=== PATIENT | female | born 1960 | race Caucasian/White ===

== ENCOUNTER → 2018-11-01 | Outpatient (CLI) | payer BC ==
--- NOTE | 2018-11-01 15:37 | BD ---
EXAMINATION TYPE: Axial Bone Density DATE OF EXAM: 11/01/2018 COMPARISON: NONE CLINICAL HISTORY: Height: 66 Weight: 176.1 FRAX RISK QUESTIONS: Alcohol (3 or more units per day): no Family History (Parent hip fracture): no Glucocorticoids (More than 3mos): no (Ex: prednisone, prednisolone, methylprednisolone, dexamethasone, and hydrocortisone). History of Fracture in Adulthood: no Secondary Osteoporosis: 1. Type 1 Diabetes: no 2. Hyperthyroidism: no 3. Menopause before 45: no 4. Malnutrition: no 5. Chronic liver disease: no Rheumatoid Arthritis: no Current Tobacco Use: no RISK FACTORS HISTORY OF: Family History of Osteoporosis: yes Active: yes Diet low in dairy products/other sources of calcium: no Postmenopausal woman: age 54 MEDICATIONS: none Additional History: EXAM MEASUREMENTS: Bone mineral densitometry was performed using the [employer] System. Bone mineral density as measured about the Lumbar spine is: ----- L1-L4(G/cm2): 1.471 T Score Values are as follows: ----- L2: 2.6 ----- L3: 2.7 ----- L4: 2.3 ----- L1-L4: 2.4 Bone mineral density : baseline Bone mineral density about the R hip (g/cm2): 1.143 Bone mineral density about the L hip (g/cm2): 1.167 T Score values are as follows: -----R Neck: 0.8 -----L Neck: 0.9 -----R Total: 0.9 -----L Total: 1.4 Bone mineral density : baseline IMPRESSION: Negative NOTE: T-SCORE=SD OF THE YOUNG ADULT MEAN.
--- NOTE | 2018-11-03 10:17 | MM ---
Reason for exam: screening (asymptomatic). Last mammogram was performed 1 year and 10 months ago. History: Patient is postmenopausal. Physical Findings: A clinical breast exam by your physician is recommended on an annual basis and results should be correlated with mammographic findings. MG 3D Screening Mammo W/Cad Bilateral CC and MLO view(s) were taken. Prior study comparison: December 30, 2016, mammogram, performed at [facility]. December 27, 2016, mammogram, performed at [facility]. The breast tissue is heterogeneously dense. This may lower the sensitivity of mammography. There is chronic nodularity in the left breast. No significant changes when compared with prior studies. ASSESSMENT: Benign, BI-RAD 2 RECOMMENDATION: Routine screening mammogram of both breasts in 1 year.
== END | disposition home or self-care (01) ==
LOC: RADMAMWWP 14:18
PROVIDERS: ATTEND Family Medicine
DX: Z12.31 Encounter for screening mammogram for malignant neoplasm of breast (principal); Z13.820 Encounter for screening for osteoporosis
CPT/HCPCS: 77063; 77067; 77080

== ENCOUNTER → 2020-12-08 | Outpatient (CLI) | payer BC ==
[2020-12-08 15:36] LABS: Basophils # (A) 0.1 k/uL (0-0.2); Basophils % (A) 1 %; Eosinophils # (A) 0.3 k/uL (0-0.7); Eosinophils % (A) 5 %; HCT 41.6 % (34.0-46.0); HGB 14.2 gm/dL (11.4-16.0); Lymphocytes # (A) 1.9 k/uL (1.0-4.8); Lymphocytes % (A) 30 %; MCH 31.5 pg (25.0-35.0); MCV 92.6 fL (80.0-100.0); Mean Platelet Volume 7.6; Monocytes # (A) 0.4 k/uL (0-1.0); Monocytes % (A) 7 %; Neutrophils # (A) 3.3 k/uL (1.3-7.7); Neutrophils % (A) 54 %; Platelet Count 227 k/uL (150-450); RDW 12.6 % (11.5-15.5); WBC 6.1 k/uL (3.8-10.6)
[2020-12-08 15:43] LABS: African American GFR (CKD) >90 (>60 ml/min/1.73 sqM); Anion Gap 6 mmol/L; Blood Urea Nitrogen 13 mg/dL (7-17); Carbon Dioxide 30 mmol/L (22-30); Chloride 105 mmol/L (98-107); Glucose 87 mg/dL (74-99); Non-African American GFR(CKD) >90 (>60 ml/min/1.73 sqM); Potassium 4.2 mmol/L (3.5-5.1); Sodium 141 mmol/L (137-145)
== END | disposition home or self-care (01) ==
LOC: LABPAT 14:32
PROVIDERS: ATTEND Obstetrics & Gynecology
DX: Z01.818 Encounter for other preprocedural examination (principal); N81.4 Uterovaginal prolapse, unspecified; R94.31 Abnormal electrocardiogram [ECG] [EKG]
CPT/HCPCS: 36415; 80051; 82565; 82947; 84520; 85025; 86850; 86900; 86901; 87086; 93005

== ENCOUNTER 2020-12-16 05:41 | Day surgery (SDC) | payer BC ==
[2020-12-10 15:45] VITALS: BMI 27.4
[~2020-12-16 05:41] MED LIST: DEXAMETHASONE SOD PHOSPHATE 4 MG/ML 1 ML VIAL IV ONE; MIDAZOLAM 2 MG/2 ML VIAL IV PRN; ONDANSETRON 4 MG/2 ML VIAL IVP ONE; SCOPOLAMINE 1.5MG/72HR PATCH TRANSDERM ONE
[2020-12-16] MEDS ORDERED: LACTATED RINGERS 1,000 ML IV ONE ×2 (06:25→09:34)
[2020-12-16] MEDS ORDERED: fentaNYL (PF) 50 MCG/ML 2 ML AMP IV PRN (07:00)
--- NOTE | 2020-12-16 07:09 | P.ANPRN ---
Procedure Note - Anesthesia - Nerve Block Performed Bilateral Erector Spinae Single Time Out Performed: Yes (640) Date of Procedure: 12/16/20 Procedure Start Time: 06:41 Procedure Stop Time: 06:51 Location of Patient: PreOp Indication: Acute Post-Operative Pain, Analgesia, Requested by Surgeon Specifically requested for management of pain by DrLeslye: Hannah Carrizales Sedation Type: Sedate with meaningful contact maintained Preparation: Sterile Prep Position: Prone Catheter: None Needle Types: Pajunk Needle Gauge: 21 Ultrasound used to visualize needle placement: Yes Ultrasound used to observe medication spread: Yes Injectate: Other (see comment) (0.25% ropivacaine 40 mL) Blood Aspirated: No Pain Paresthesia on Injection Noted: No Resistance on Injection: Normal Image Stored and Saved: Yes Events: Uneventful and Well Tolerated
[2020-12-16] MEDS ORDERED: ROCURONIUM 10 MG/ML (5 ML VIAL) IV ONE (07:21)
[2020-12-16] MEDS ORDERED: LIDOCAINE 1% INJ 10MG/ML (20 ML MDV) ONE (07:21)
[2020-12-16] MEDS ORDERED: NEOSTIGMINE 1 MG/ML 10 ML VIAL ONE (07:21)
[2020-12-16] MEDS ORDERED: fentaNYL (PF) 50 MCG/ML 2 ML AMP ONE (07:21)
[2020-12-16] MEDS ORDERED: PROPOFOL 10 MG/ML 20 ML VIAL IV ONE (07:21)
[2020-12-16] MEDS ORDERED: GLYCOPYRROLATE 0.2 MG/ML 2 ML VIAL ONE (07:21)
[2020-12-16] MEDS ORDERED: SUCCINYLCHOLINE CHLORIDE 100 MG/5 ML SYR IV ONE (07:21)
[2020-12-16] MEDS ORDERED: ROPIVACAINE 5 MG/ML 30 ML VIAL ONE (07:21)
[2020-12-16] MEDS ORDERED: BACITRACIN ZINC 500 UNIT/GM OINT 28.4 GM TUBE TOPICAL ONE (07:52)
[2020-12-16] MEDS ORDERED: VASOPRESSIN 20 UNIT/ML 1 ML VIAL IM ONE (07:52)
[2020-12-16] MEDS ORDERED: ZOLPIDEM 5 MG TAB PO PRN (08:55)
[2020-12-16] MEDS ORDERED: ONDANSETRON 4 MG/2 ML VIAL IVP PRN (08:55)
[2020-12-16] MEDS ORDERED: diphenhydrAMINE 50 MG/ML 1 ML VIAL IVP PRN (08:55)
[2020-12-16] MEDS ORDERED: KETOROLAC 15 MG/ML 1 ML VIAL IVP PRN (08:55)
[2020-12-16] MEDS ORDERED: SIMETHICONE 80 MG CHEWABLE PO PRN (08:55)
[2020-12-16] MEDS ORDERED: METOCLOPRAMIDE 5 MG/ML 2 ML VIAL IVP PRN (08:55)
--- NOTE | 2020-12-16 08:55 | P.OP ---
Date of Procedure: 12/16/20 Preoperative Diagnosis: Symptomatic uterine prolapse and cystocele Postoperative Diagnosis: Same, normal-appearing ovaries bilaterally Procedure(s) Performed: Vaginal hysterectomy, anterior colporrhaphy Anesthesia: ELOYA Surgeon: Hannah Carrizales Medical Accountant #1: Gabriela Cruz Estimated Blood Loss (ml): 50 IV fluids (ml): 500 Urine output (ml): 200 Pathology: other (Cervix and uterus) Condition: stable Disposition: PACU Operative Findings: Normal-appearing ovaries bilaterally. Description of Procedure: Patient is brought to the operating suite where a general anesthetic is admin istered without difficulty. She's placed in the dorsal lithotomy position. Antibiotics are given. The appropriate timeout is performed to assure proper patient and procedural identification. Bladder is drained for approximately 200 mL of clear yellow urine. The cervix, vagina, perineum are all prepped and draped in usual sterile fashion. Weighted speculum was placed into the vagina. The anterior lip of the cervix is grasped with a double-tooth tenaculum. The cervix is injected circumferentially with a dilute Pitressin solution. A shawnee blade scalpel is used to incise the mucosa circumferentially with a V positioning at 6:00. A sponge is used to sweep the mucosa from the underlying fascial plane. Peritoneum is entered at 6:00 and suture tied with 2-0 Vicryl, held with a hemostat. The large billed speculum is then placed. Had her is Well from the operative field to avoid bladder and/or ureteral injury. The right uterosacral cardinal ligament is identified, clamped with a H aney clamped, cut and suture ligated. The suture is held laterally with a hemostat. Please note that 0 Vicryl suture is used for the entire remaining hysterectomy portion of the procedure. Same procedure is carried out contralaterally on the left uterosacral cardinal ligament, again held with a hemostat. Uterine vasculature is identified, clamped cut and suture ligated. 2 additional pedicles are taken superior to the vessels bilaterally. The anterior peritoneum was entered at 12:00 with a Metzenbaum scissor. The uterus is then "walked out". Paulo clamps are used across the final pedicles, the cervix and uterus are sent to pathology. The pedicles are tied with 0 Vicryl suture, flashed, and retied for excellent hemostasis. A sponge stick is then used and bilateral ovaries are inspected and noted to be normal. They are left in situ per the patient's wishes. All pedicles are clean and dry. The speculum is changed to the shallow billed speculum, the 2-0 Vicryl suture at 6:00 is brought around in a pursestring fashion to close the peritoneum. The previously placed 0 Vicryl sutures on the uterosacral cardinal ligaments are now brought across to incorporate the opposite ligament and vaginal mucosa. 2 additional [id number] sutures are used to close the vaginal cuff. Allis clamps are used on the remaining mucosal had at 12:00 and the bladder repair is commenced. The anterior mucosa is once again injected in the midline with the same dilute Pitressin solution. Metzenbaum scissors are used in the midline to open the mucosa. The edges are held in a fanlike fashion with Allis clamps. A sponge rolled finger is used to sweep the fascial plane from the overlying mucosal edge. Mathis catheter is placed in the bladder is draining clear urine. 2-0 Vicryl sutures used in an interrupted fashion to bring the edges of the mucosa back to the midline thereby completely reducing the cystocele. The mucosal edges are trimmed with Metzenbaum scissors. 2-0 Vicryl is used in a running locking stitch to close the anterior vaginal wall. Approximation is excellent. Hemostasis is excellent. The vagina is packed with one-inch iodophor gauze with basic tracing. Mathis catheter again is draining clear urine. All sponge needle and enhancement counts are correct. Patient is brought back to the recovery room in very good condition with stable vital signs including blood pressure 105/47, pulse 60, 99% O2 saturation.
[2020-12-16] MEDS: HYDROmorphone 1 MG/ML 1 ML SYRINGE IVP ONE ×2 (09:12→09:16)
[2020-12-16] MEDS ORDERED: HYDROcodone/APAP 5-325MG 1 EACH TAB PO PRN (12:19)
[2020-12-16] MEDS: ACETAMINOPHEN TAB 500 MG TAB PO PRN ×2 (13:18→19:26)
[2020-12-16] MEDS: IBUPROFEN 600 MG TAB PO PRN ×2 (15:24→22:36)
[2020-12-16] MEDS: LACTATED RINGERS 1,000 ML IV SCH (20:54)
[2020-12-16 21:03] VITALS: RESP 16
[2020-12-16 23:50] VITALS: BP 114/56; PULSE 75; TEMP 98.9
[2020-12-17] MEDS: ACETAMINOPHEN TAB 500 MG TAB PO PRN ×2 (01:20→07:46)
[2020-12-17] MEDS: IBUPROFEN 600 MG TAB PO PRN (04:20)
[2020-12-17] MEDS: LACTATED RINGERS 1,000 ML IV SCH (06:38)
--- NOTE | 2020-12-17 07:48 | P.DS ---
Providers Date of admission: 12/16/20 Expected date of discharge: 12/17/20 Attending physician: Hannah Carrizales Primary care physician: Khai Eng [facility] Course: This is a 60-year-old female who presented with increasingly symptomatic lm armand bulge, uterine prolapse and cystocele. After consultation and review of options, she elected to proceed with surgical repair. Please see history and physical for details. Yesterday patient underwent vaginal hysterectomy and anterior colporrhaphy under my care. She did well intraoperatively, estimated blood loss 50 mL's. Vaginal packing and Mathis catheter was placed. Ovaries left in situ per our preoperative discussion. Please see dictated operative note for details. This morning the patient is doing extremely well. She is voiding, ambulating, and passing flatus without difficulty. Vaginal packing and Mathis catheter had been removed. Abdomen is soft and nontender, active bowel sounds, no CVA tenderness. Extremities are negative for edema. Post void residual is noted to be 0. There is no vaginal bleeding, pain is well controlled, vital signs upon stable, she is judged to be in excellent condition for discharge home. She will follow-up with me in the office in 2 weeks. I have reminded her no intercourse, tampons or douching. She will use Aleve [id number] as needed for pain. No heavy lifting, no driving for 2 weeks, nothing per vagina. She will call with any fevers shakes or chills, bloody vaginal discharge, with any pain not alleviated by Aleve, or indeed with any concerns. Assessment: A very well postoperative day #1 Patient Condition at Discharge: Good Plan - Discharge Summary New Discharge Prescriptions: No Action No Known Home Medications Discharge Medication List No Known Home Medications 12/10/20 [History] Follow up Appointment(s)/Referral(s): Hannah Carrizales MD [STAFF PHYSICIAN] - 2 Weeks Discharge Disposition: HOME SELF-CARE
== END 2020-12-17 08:15 | disposition home or self-care (01) ==
LOC: OR 05:41 → 4FBP 09:14 → OR 12-17 08:15
PROVIDERS: ATTEND Obstetrics & Gynecology
DX: N81.4 Uterovaginal prolapse, unspecified (principal); N88.8 Other specified noninflammatory disorders of cervix uteri; N80.0 Endometriosis of uterus; E78.5 Hyperlipidemia, unspecified; E73.9 Lactose intolerance, unspecified; M54.5 Low back pain; G57.60 Lesion of plantar nerve, unspecified lower limb; Z98.890 Other specified postprocedural states; Z79.899 Other long term (current) drug therapy; Z82.49 Family history of ischemic heart disease and other diseases of the circulatory system; Z82.61 Family history of arthritis; Z82.0 Family history of epilepsy and other diseases of the nervous system; Z82.3 Family history of stroke
CPT/HCPCS: 64999; 86900; 86901; 86850; 88307; 87635; 58260; 57240; J2250; J1100; J2710; J0690; J2405; J2001; J3010; J1170; J2795; J1885; J0330; J2704; 88305